=== PATIENT | female | born 1975 | race Caucasian/White ===

== ENCOUNTER 2017-09-16 06:31 | Day surgery (SDC) | payer BC ==
[~2017-09-16 06:31] MED LIST: Buffered Lidocaine 0.9% SYRIN* 5 ML/SYR SYRINGE INTRADERM ONE
[2017-09-16] MEDS ORDERED: ceFAZolin 2 GM PREMIX (*) 2 GM/50 ML BAG IVPB ONE (06:46)
[2017-09-16] MEDS ORDERED: Bupivacaine 0.25% SDV* 30 ML ONE (07:12)
[2017-09-16] MEDS ORDERED: fentaNYL* 50 MCG/ML 2 ML VIAL (100 MCG VIAL) ONE (07:33)
[2017-09-16] MEDS ORDERED: Midazolam* 1 MG/ML 5 ML VIAL (5 MG) ONE (07:33)
[2017-09-16] MEDS ORDERED: Propofol* 10 MG/ML 20 ML BTL IV PUSH ONE (07:52)
[2017-09-16] MEDS ORDERED: Ondansetron INJ* 2 MG/ML VIAL IV PRN (08:13)
[2017-09-16] MEDS ORDERED: Ibuprofen TAB* 600 MG PO PRN (08:13)
[2017-09-16] MEDS ORDERED: Naloxone* 0.4 MG/ML 1 ML VIAL IV PRN (08:13)
[2017-09-16] MEDS ORDERED: Ibuprofen TAB* 600 MG ONE (08:52)
[2017-09-16 09:32] VITALS: BP 117/61
--- NOTE | 2017-09-16 11:08 | OP ---
DATE OF OPERATION: 09/16/17 - [facility] DATE OF : 79 SURGEON: Len Han MD POLYMER ENGINEER: PRINCE Dumont ANESTHESIOLOGIST: Lacy Bermudez MD ANESTHESIA: Local MAC. PRE-OP DIAGNOSIS: Right elbow lateral epicondylitis. POST-OP DIAGNOSIS: Right elbow lateral epicondylitis. OPERATIVE PROCEDURE: Right elbow lateral epicondylitis debridement of extensor carpi radialis brevis tendon origin. 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 She has had extensive nonoperative treatment. She under-stood the risks and benefits of surgery including the risk of persistent pain despite surgery. I did not feel she had radial tunnel syndrome. We elected to proceed with surgery. ESTIMATED BLOOD LOSS: 2 mL. COMPLICATIONS: None. FINDINGS: As expected. DESCRIPTION OF PROCEDURE: Veda was seen in the preoperative holding area. The correct side, site, and procedure were identified. We came back to the operating room, where she got some anesthesia and I infiltrated the operative area with 0.25% plain Marcaine. The arm was then prepped and draped in the usual fashion and a time-out was performed. I began by exsanguinating the arm with Esmarch and the tourniquet was inflated to 250 mmHg. I then made a gently curved curvilinear incision over the lateral epicondyle. Dissection was carried down and full-thickness flaps were raised off the fascia. The oblique fibers and the more longitudinal fibers at the interval between the EDC and the ECRL were identified. The interval was opened sharply with the 15-blade. This brought us down to the ECRB tendon origin, which had the typical silver fishy appearance. This was excised directly off the lateral epicondyle. This was taken down and it was excised completely with the portion of the radial capitellar joint capsule. Great care was taken to preserve the origin of the lateral ulnar collateral ligament. Once the debridement was complete and there were no remnants of diseased tissue remaining , specimen was curetted off the bone, it looked nice and clean. The wound was copiously irrigated. The fascia was closed with 0 Vicryl suture, skin was closed with 4-0 Monocryl suture and Steri-Strips. The wound was dressed with Xeroform, 4x4's, sterile Webril, and an elbow splint was applied. She was woken up and taken to the recovery room in stable condition. [id number]/[facility] #: [id number] MTDD
== END 2017-09-16 09:20 | disposition home or self-care (01) ==
LOC: OREAST 06:31
PROVIDERS: ATTEND Orthopaedic Surgery Hand Surgery
DX: M77.11 Lateral epicondylitis, right elbow (principal); I49.3 Ventricular premature depolarization; E03.9 Hypothyroidism, unspecified; M54.2 Cervicalgia; M54.5 Low back pain
CPT/HCPCS: 81025; 88304; A9270-GY; J0690; J2250; J2704; J3010